=== PATIENT | female | born 2000 | race Caucasian/White ===

== ENCOUNTER 2021-04-03 13:56 | Outpatient (REF) | payer OTHER, SELFPAY | END 2021-04-03 13:57 | disposition home or self-care (01) | LOC: HO.LNP 13:56 | PROVIDERS: Visit Provider Physician Assistant Medical | DX: Z20.828 Contact with and (suspected) exposure to other viral communicable diseases (principal) | CPT/HCPCS: U0003; U0005 ==

== ENCOUNTER 2021-07-04 13:00 | Outpatient (REF) | payer OTHER, SELFPAY | END 2021-07-04 13:01 | disposition home or self-care (01) | LOC: HO.HMGCLDS 13:00 | PROVIDERS: Visit Provider Internal Medicine | DX: Z20.822 Contact with and (suspected) exposure to COVID-19 (principal) | CPT/HCPCS: C9803; U0003; U0005 ==

== ENCOUNTER 2023-09-24 13:42 | Outpatient (AMB) | payer BC, SELFPAY ==
--- NOTE | 2023-09-24 13:48 | AM.OFFWIN_ITS ---
Intake Vital Signs 09/24/23 13:53 Weight 126 lb BP 112/70 Blood Pressure Location Lt brachial Position Sitting Pulse 81 Pulse Source Pulse Oximeter Temp 98.3 F Temp Source Temporal Artery Scan Pulse Oximetry (%) 98 Oxygen Delivery Method Room Air Intake Visit Reasons: EP Rash RT leg Intake Note: pt is here today for rash rt leg started 2 days ago Patient Tobacco Use Status: Never used Tobacco Allergies No Known Allergies Allergy (Verified 09/24/23 13:48) Medication List - Last Reconciled 09/24/23 by FRANK Damian albuterol sulfate 90 mcg/actuation 2 inhalations inhalation Q6-8H PRN butenafine 1% (Lotrimin Ultra) 1 appl topical DAILY 2 weeks olopatadine 0.2% 1 drp ophthalmic (eye) DAILY 10 days Do you need a note to return to daycare/school/sports/work: No HPI HPI Comments History of Present Illness Details 23-year-old female comes in today compla ining of a rash on her right outer thigh that is circular in nature she has had it for a couple of weeks. She also is complaining of a cough after laughing but has no upper respiratory symptoms no congestion no shortness of breath [facility], [facility] Medical History (Updated 09/24/23 @ 14:13 by FRANK Damian) Otitis media of right ear Social History Patient Tobacco Use Status: Never used Tobacco Review of Systems Const All systems reviewed & are unremarkable except as noted in HPI and below Physical Exam Vital Signs: Last Vital Signs Temp 98.3 F 09/24/23 13:53 Pulse 81 09/24/23 13:53 BP 112/70 09/24/23 13:53 Pulse Ox 98 09/24/23 13:53 Oxygen Delivery Method Room Air 09/24/23 13:53 HEENT Head: Yes normal to inspection, Yes normocephalic and Yes atraumatic Ears: hearing grossly normal bilaterally General nose exam: Normal external nose present Face and sinus: Yes normal facial exam and Yes sinuses nontender Mouth: Normal oral and palatal mucosa present Throat: Yes posterior oropharynx normal Eyes General: appearance normal, both eyes and all related structures Resp Effort & Inspection: normal respiratory effort Auscultation: clear to auscultation bilaterally Cardio Rate: regular rate Rhythm: regular rhythm Skin Rashes: rashes noted (Circular rash on the right outer thigh) Assessment & Plan Assessment & Plan (1) Rash: Code(s): R21 - Rash and other nonspecific skin eruption Plan: The patient will use Lotrimin on the rash for 2 weeks. (2) Cough: Code(s): R05.9 - Cough, unspecified Plan: Sounds like the patient has left her or exercise induced asthma. She is going to use her inhaler twice a day for 5 days and then as needed. Follow up with her PCP (3) Ringworm: Comment: The patient will use Lotrimin on the rash for 2 weeks. Code(s): B35.9 - Dermatophytosis, unspecified Plan: See plan Medications: New butenafine 1% (Lotrimin Ultra) 1 appl topical DAILY 12 grams 0RF 2 weeks albuterol sulfate 90 mcg/actuation 2 inhalations inhalation Q6-8H PRN 6.7 grams 0RF cough Coding Level of Care Code Est Pt Level 3 (13640) Diagnoses Rash R21 Cough R05.9 Ringworm B35.9
[2023-09-24 13:53] VITALS: BP 112/70; PULSE 81; TEMP 36.8; O2SAT 98
== END 2023-09-24 14:13 | disposition home or self-care (01) ==
PROVIDERS: Visit Provider Physician Assistant Medical
DX: R21 Rash and other nonspecific skin eruption (principal); R05.9 Cough, unspecified; B35.9 Dermatophytosis, unspecified
CPT/HCPCS: 99213

== ENCOUNTER 2024-11-24 10:29 | Outpatient (AMB) | payer BC, SELFPAY ==
--- NOTE | 2024-11-24 11:15 | AM.OFFWIN_ITS ---
Intake Vital Signs 11/24/24 11:17 Height 5 ft 4 in Weight 128 lb BMI 22.0 BP 110/68 Blood Pressure Location Rt brachial Position Sitting Pulse 62 Pulse Source Pulse Oximeter Temp 98.2 F Temp Source Oral Pulse Oximetry (%) 98 Oxygen Delivery Method Room Air Intake Visit Reasons: EP Sore Throat Intake Note: pt is here for sore throat x4 days Patient Tobacco Use Status: Never used Tobacco Allergies No Known Allergies Allergy (Verified 11/24/24 11:19) Do you need a note to return to daycare/school/sports/work: Yes HPI HPI Comments History of Present Illness Details Patient is a 24yo F with hx of ST Ongoing x 4 days States 8/10 pain, worse with swallowing Tried OTC medicine without relief + pain in lymph nodes No fever or chills + fatigue She said minimal congestion without ear pain + slight cough without CP or SOB She denies sick contacts Denies hx of mono [facility] Medical History (Updated 11/24/24 @ 11:33 by Ro Mccann PA-C) Otitis media of right ear Social History Patient Tobacco Use Status: Never used Tobacco Review of Systems Const Denies chills, Reports fatigue and Denies fever(s) ENT Denies otalgia, Reports nasal congestion, Reports sore throat, Denies throat swelling and Denies tongue swelling Card Denies chest pain and Denies dyspnea Resp Reports cough and Denies dyspnea Endo Reports fatigue Aller/Immun Denies throat swelling and Denies tongue swelling Physical Exam Vital Signs: Last Vital Signs Temp 98.2 F 11/24/24 11:17 Pulse 62 11/24/24 11:17 BP 110/68 11/24/24 11:17 Pulse Ox 98 11/24/24 11:17 Oxygen Delivery Method Room Air 11/24/24 11:17 BMI result Body Mass Index 22.0 General: Non-toxic, NAD. Speaking full sentences. Handling secretions Skin: Warm dry throughout Eye: EOMI HENT: Airway patent. Uvula midline. + pharyngeal erythema without exudates or edema. No [employer]. No tongue edema Bilateral canals clear. TM non-erythematous, non-bulging. No TM perforation or hemotympanum noted. Lymph: + anterior cervical R sided lymphadenopathy to palpation Respiratory: CTA bilaterally. No wheezes, rales or rhonchi Cardiac: RRR. No murmur MSK: Full ROM extremities. Neurology: Alert. No aphasia or facial droop. Gait without abnormality Psych: Good mood and affect Assessment & Plan Assessment & Plan (1) Pharyngitis: Code(s): J02.9 - Acute pharyngitis, unspecified Qualifiers: Pharyngitis/tonsillitis etiology: unspecified etiology Qualified Code(s): J02.9 - Acute pharyngitis, unspecified Plan: Patient seen and evaluated. No [employer] on exam Strep negative [place] ordered and brief mono education provided; pt not athlete in contact sports.Discussed transmission and what to avoid until results Tylenol/Motrin Stay hydrated ER s/s discussed such as inability to swallow etc Patient gave verbal understanding and had no additional questions or concerns at time of discharge All questions answered Orders: Orders Monotest Today J02.9 - Acute pharyngitis, unspecified Coding Level of Care Code Est Pt Level 3 (95147) Diagnoses Pharyngitis, unspecified etiology J02.9 Pharyngitis/tonsillitis etiology: unspecified etiology
[2024-11-24 11:17] VITALS: BP 110/68; PULSE 62; TEMP 36.8; O2SAT 98; BMI 22.0
== END 2024-11-24 12:27 | disposition home or self-care (01) ==
PROVIDERS: Visit Provider Physician Assistant
DX: J02.9 Acute pharyngitis, unspecified (principal); Z13.9 Encounter for screening, unspecified

== ENCOUNTER → 2024-11-24 10:29 | Outpatient (BNVA) | payer BC, SELFPAY | PROVIDERS: Visit Provider Physician Assistant | DX: J02.9 Acute pharyngitis, unspecified (principal) | CPT/HCPCS: 87880 ==